=== PATIENT | female | born 2005 | race Caucasian/White ===

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

== ENCOUNTER 2023-10-31 00:52 | Emergency (ER) | payer OTHER, SELFPAY ==
--- NOTE | ~2023-10-31 | CT_ITS ---
EXAMINATION: CT abdomen pelvis w con DATE: 10/31/2023 02:32 INDICATION: Right pelvic pain. TECHNIQUE: Computed tomography (CT) of the abdomen and pelvis was performed with 100 mL Omnipaque 350 intravenous contrast. Automated exposure control and iterative reconstruction technique were employe d. The dose-length product was 193.97 mGy-cm. COMPARISON: None. FINDINGS: The visualized portions of the lung bases demonstrate mild atelectasis. No pleural effusion . The heart size is normal. No pericardial effusion. There is periportal edema in the liver. The gall bladder is normal in size. Gallbladder wall thickening is noted, likely interstitial edema. The splee n, pancreas, adrenal glands, and kidneys are normal. There are no dilated loops of bowel. The appendi x is normal. There is physiologic fluid in the pelvis. There is a small volume of perihepatic ascites . There are no pathologically enlarged lymph nodes. The bones are unremarkable. IMPRESSION: 1. Periportal edema and small volume of perihepatic ascites. Gallbladder wall thickening, likely seco ndary to interstitial edema. Reviewed, dictated and finalized at location A. IMPRESSION: 1. Periportal edema and small volume of perihepatic ascites. Gallbladder wall t hickening, likely secondary to interstitial edema.
[2023-10-31 00:52] VITALS: BP 120/89; PULSE 95; RESP 17; TEMP 36.4; O2SAT 100
--- NOTE | 2023-10-31 01:06 | ED.GENADULT ---
HPI - General Adult General Chief complaint: Abdominal Pain Stated complaint: ABD Pain Time Seen by Provider: 10/31/23 01:00 History of Present Illness HPI narrative: The patient is an otherwise healthy 18-year-old woman who presents with lower abdominal suprapubic discomfort since the afternoon of 10/30/2023, constant in nature, waxing and waning in intensity, radiating down to the right leg up to the knee. It is associated with nausea, and several bouts of emesis, approximately 6. Last menstrual period was 3 weeks ago. She is due on her cycle in 1 weeks time. No previous similar pain. Normal bowel movements. No hematochezia or melena or diarrhea. No vaginal discharge or bleeding. No URI symptoms such as cough rhinorrhea nasal congestion or sore throat. No UTI symptoms such as urgency frequency dysuria or hematuria. No previous medical history. No abdominal operations. She takes no medications. Related Data Allergies Allergy/AdvReac Type Severity Reaction Status Date / Time No Known Allergies Allergy Verified 10/31/23 00:57 Review of Systems Review of Systems: All systems reviewed & are unremarkable except as noted in HPI and below Constitutional: Constitutional: Denies chills, Denies excessive sweating, Denies fatigue, Denies fever(s), Denies headache(s) and Denies weakness Eyes: Eyes: Denies change in vision and Denies photophobia ENT: Denies dysphagia, Denies dizziness, Denies headache(s), Denies lip swelling, Denies nasal congestion, Denies sore throat and Denies tongue swelling Cardiovascular: Cardiovascular: Denies chest pain, Denies syncope, Denies rapid heart rate and Denies dyspnea Respiratory: Respiratory: Denies cough, Denies dyspnea and Denies wheezing Gastrointestinal: Gastrointestinal: Reports abdominal pain ( Suprapubic discomfort), Denies constipation, Denies dysphagia, Denies diarrhea, Reports nausea and Reports vomiting Genitourinary: Genitourinary: Denies hematuria, Denies urinary frequency, Denies dysuria and Denies urinary urgency Musculoskeletal: Musculoskeletal: Denies back pain, Denies myalgias, Denies arthralgias, Denies joint swelling and Denies numbness Integumentary/Breasts: Skin/Breast: Denies pruritus, Denies erythema and Denies rash Neurologic: Denies confusion, Denies dizziness, Denies syncope, Denies headache(s), Denies focal weakness, Denies numbness and Denies weakness Psychiatric: Psychiatric: Denies anxiety and Denies confusion Endocrine: Endocrine: Denies excessive sweating and Denies fatigue Hematologic/Lymphatic: Hematologic/Lymphatic: Denies easy bleeding and Denies easy bruising Allergic/Immunologic: Allergic/Immunologic: Denies lip swelling, Denies tongue swelling and Denies wheezing PMFSH Past Medical History Medical History Laceration Exam Const: General: healthy appearing, no acute distress, alert and well nourished Nutritional Appearance: well nourished Orientation/consciousness: patient oriented x3 Limitations: no limitations HENMT: Head: normal to inspection Ears: external ears normal Face/Nose/Sinus: normal facial exam Face and sinus: normal facial exam Mouth: Yes moist mucous membranes Throat: posterior oropharynx normal Eyes: Conjunctivae: conjunctivae normal Pupils: Equal, round and reactive pupils present EOM: EOMs intact bilaterally Neck: Neck: normal visual inspection and no meningeal signs Chest: Chest palpation & inspection: normal inspection of the chest and no tenderness Resp: Effort & Inspection: normal respiratory effort and not labored Auscultation: clear to auscultation bilaterally, no crackles, no rhonchi and no wheezes Cardio: Rate: regular rate Rhythm: regular rhythm Heart sounds: no murmurs GI: Inspection: non-distended GI Palp: Yes Soft to palpation, Yes Tenderness to palpation present (GI) ( mild suprapubic tenderness to palpation, no rebound), No Guarding due to pal
[2023-10-31] MEDS: SODIUM CHLORIDE 0.9% IV 1,000 ML 999 ML IV CONT (01:15)
[2023-10-31] MEDS: ONDANSETRON INJ 4 MG/2 ML VIAL IV PUSH (01:16)
[2023-10-31 01:20] LABS: Basophils Absolute Auto 0.04 K/mm3 (0.00-0.10); Basophils Percent Auto 0.5 % (0.0-1.0); Eosinophils Absolute Auto 0.22 K/mm3 (0.02-0.50); Eosinophils Percent Auto 2.9 % (1.0-6.0); Hematocrit 35.4 % (35.0-49.0); Hemoglobin 12.2 g/dL (12.0-15.0); Immature Granulocyte Absolute 0.02 K/mm3 (0.00-0.00); Immature Granulocyte Percent A 0.3 % (0.0-0.0); Immature Platelet Fraction Pct 3.3 % (1.0-7.0); Lymphocytes Absolute Auto 2.46 K/mm3 (1.10-4.50); Lymphocytes Percent Auto 32.3 % (18.0-42.0); Mean Corpuscular HGB Conc 34.5 g/dL (32-36); Mean Corpuscular Hemoglobin 29.6 pg (27.0-31.0); Mean Corpuscular Volume 85.9 fL (78.0-102.0); Mean Platelet Volume 11.2 fl (9.2-11.8); Monocytes Absolute Auto 0.33 K/mm3 (0.10-0.90); Monocytes Percent Auto 4.3 % (2.0-11.0); Neutrophils Absolute Auto 4.54 K/mm3 (1.70-7.20); Neutrophils Percent Auto 59.7 % (50.0-70.0); Platelet Count Result 110 K/mm3 (150-420); Red Blood Count 4.12 M/mm3 (4.20-5.40); Red Cell Distribution Width 12.1 % (11.6-14.4); White Blood Count 7.6 K/mm3 (4.8-10.8)
[2023-10-31 01:31] LABS: Alanine Aminotransferase 18 U/L (14-59); Albumin Level 3.9 g/dL (3.4-5.0); Alkaline Phosphatase 36 U/L (46-116); Amylase 49 U/L (25-115); Anion Gap 12 mmol/L (4-12); Aspartate Amino Transferase 19 U/L (15-37); Bilirubin,Total 0.3 mg/dL (0.00-1.00); Blood Urea Nitrogen 8 mg/dL (7-18); Calcium 8.5 mg/dL (8.5-10.1); Carbon Dioxide 24 mmol/L (21-32); Chloride 103 mmol/L (98-108); Estimated CRCL calculation 91 ml/min; Estimated Glomerular Filt Rate > 60; Glucose 140 mg/dL (70-99); Lipase 11 U/L (16-77); Magnesium 1.9 mg/dL (1.8-2.4); Osmolality Calculated 288 mOsm/kg (285-295); Potassium 3.1 mmol/L (3.5-5.1); Sodium 139 mmol/L (136-145); Total Protein 6.9 g/dL (6.4-8.2)
[2023-10-31 01:33] LABS: SPREG INTERNAL CONTROL Positive; Serum Qual hCG Negative
[2023-10-31] MEDS: KETOROLAC 30 MG/ML VIAL (*BKC) IV PUSH (01:34)
[2023-10-31 02:18] LABS: Appearance Urine Cloudy (Clear); Bilirubin Urine 1+ (Negative); Blood Urine 3+ (Negative); Glucose Urine UA Trace (Negative); Ketones Urine Trace (Negative); Leukocyte Esterase Ur Trace LEU/UL (Negative); Nitrate Urine Positive (Negative); Protein Urine 2+ (Negative); Specific Grav Ur >= 1.030 (1.010-1.020); pH Urine 5.5 (5.0-8.0)
[2023-10-31 02:24] LABS: Add Urine Microscopic? YES; Color Urine Dark Red (Yellow); RBC Urine >100 /hpf (0-2)
[2023-10-31 02:25] LABS: Bacteria Urine 2+ /hpf; Squamous Epithelial Cell Urine Few /hpf (Few)
[2023-10-31 02:33] VITALS: BP 120/76; PULSE 78; RESP 16; O2SAT 100
[2023-10-31] MEDS: POTASSIUM CHLORIDE 20 MEQ ER TABLET 40 MEQ PO (03:12)
[2023-10-31 03:16] VITALS: BP 122/78; PULSE 80; RESP 16; O2SAT 100
--- NOTE | 2023-11-02 16:59 | PC.NURSE ---
FINAL URINE CULTURE NO GROWTH
== END 2023-10-31 04:09 | disposition home or self-care (01) ==
PROVIDERS: Emergency Provider Emergency Medicine
DX: N39.0 Urinary tract infection, site not specified (principal); E87.6 Hypokalemia
CPT/HCPCS: 36415; 74177; 80053; 81001; 82150; 83690; 83735; 84703; 85025; 85055; 87086; 96361; 96365; 96375; 99284; A9270; J0696; J1885; J2405; J7030; Q9967

== ENCOUNTER 2024-07-12 19:57 | Emergency (ER) | payer OTHER, SELFPAY ==
[2024-07-12 20:00] VITALS: BP 112/80; PULSE 104; RESP 18; TEMP 36.9; O2SAT 100
--- NOTE | 2024-07-12 20:04 | ED.NAVMDI ---
HPI - Nausea/Vomiting/Diarrhea General Chief complaint: Nausea/Vomiting/Diarrhea Stated complaint: n/v/d Time Seen by Provider: 07/12/24 20:04 Source: patient Mode of arrival: ambulatory Limitations: no limitations History of Present Illness HPI Narrative: 18-year-old female with no significant past medical history presents to the ED with a 1 day history of -- nausea with multiple episodes of vomiting. Vomitus is bilious. She is unable to keep anything down. -- diffuse abdominal pain. -- Multiple episodes of watery stool. No blood or mucus noted. No fever or chills. No upper respiratory tract symptoms The patient ate out in [employer] yesterday. No one else is sick at home. MD elicited complaint: nausea, vomiting, diarrhea and abdominal pain Onset (ago): day(s) ( 1 day) Description of vomiting: watery Description of diarrhea: watery Associated nausea: Yes Associated abdominal pain: Yes Location of pain: diffuse Pain consistency: intermittent Quality: aching Exacerbating factors: none Relieving factors: none Associated symptoms: weakness Related Data Allergies Allergy/AdvReac Type Severity Reaction Status Date / Time No Known Allergies Allergy Verified 07/12/24 20:42 Review of Systems Review of Systems: All systems reviewed & are unremarkable except as noted in HPI and below PMFSH Past Medical History Medical History Laceration Exam Const: General: no acute distress Orientation/consciousness: patient oriented x3 Limitations: no limitations HENMT: Head: normal to inspection Ears: external ears normal Face/Nose/Sinus: Normal external nose present Face and sinus: normal facial exam Mouth: Yes Normal oral and palatal mucosa present Throat: posterior oropharynx normal Eyes: Conjunctivae: conjunctivae normal Cornea: corneas normal Pupils: Equal, round and reactive pupils present EOM: EOMs intact bilaterally Direct Ophthalmoscopy: no photophobia Neck: Neck: normal visual inspection, no lymphadenopathy and no meningeal signs Chest: Chest palpation & inspection: normal inspection of the chest Resp: Effort & Inspection: normal respiratory effort Auscultation: clear to auscultation bilaterally Cardio: Rate: regular rate Rhythm: regular rhythm GI: GI Palp: Yes Soft to palpation Auscultation: normal bowel sounds Other: no tenderness/rigidity / rebound. : General: Yes no CVA tenderness Back/Spine/Pelvis: Back: no CVA tenderness Skin: General skin exam: normal color Rashes: no rashes Wounds: no wounds Neuro: General: patient oriented x3, moves all extremities, no meningeal signs, no focal motor deficits and CN's II-XI intact bilaterally Cranial nerves: Yes Nystagmus not present Speech: normal speech Extrem: General: normal to inspection and no clubbing, cyanosis or edema Psych: Mental Status: mental status grossly normal Affect: normal affect Attitude: cooperative Course Course Emergency Course: Gastroenteritis-- physical examination did not show any evidence of acute abdomen. The patient is noted to have a white cell count of 9. Patient received IV fluids and Compazine. Will discharge home on boyfriend Vital Signs Vital signs: Vital Signs Temperature 36.9 C 07/12/24 20:00 Pulse Rate 104 H 07/12/24 20:00 Respiratory Rate 18 07/12/24 20:00 Blood Pressure 112/80 07/12/24 20:00 Pulse Oximetry 100 07/12/24 20:00 Oxygen Delivery Room Air 07/12/24 20:00 Temperature 36.9 C 07/12/24 20:00 Pulse Rate 104 H 07/12/24 20:00 Respiratory Rate 18 07/12/24 20:00 Blood Pressure 112/80 07/12/24 20:00 Pulse Oximetry 100 07/12/24 20:00 Oxygen Delivery Room Air 07/12/24 20:00 MDM - Nausea/Vomiting/Diarrhea MDM Narrative Medical decision making narrative: gastroenteritis Differential Diagnosis Differential diagnosis: Likely traveler's diarrhea Medical Records Attestation: I reviewed the patient's medical records. Lab Data Attestation: I reviewed the patient's lab results. 07/12/24 20:21 07/12/24 20:20 Labs: Lab Results 07/12/24 07/12/24 07/12/24 Range/Units 20:20 20:21 20:44 WBC 9.0 (4.8-10.8) K/mm3 RBC 5.19 (4.20-5.40) M/mm3 Hgb 14.7 (12.0-15.0) g/dL Hct 42.8 (35.0-49.0) % MCV 82.5 (78.0-102.0) fL MCH 28.3 (27.0-31.0) pg MCHC 34.3 (32-36) g/dL RDW 12.1 (11.6-14.4) % Plt Count 166 (150-420) K/mm3 MPV 10.7 (9.2-11.8) fl Immature Gran % (Auto) 0.2 H (0.0-0.0) % Neut % (Auto) 95.8 H (50.0-70.0) % Lymph % (Auto) 2.3 L (18.0-42.0) % [place] % (Auto) 1.3 L (2.0-11.0) % Eos % (Auto) 0.2 L (1.0-6.0) % Baso % (Auto) 0.2 (0.0-1.0) % Lymph # (Auto) 0.21 L (1.10-4.50) K/mm3 [place] # (Auto) 0.12 (0.10-0.90) K/mm3 Eos # (Auto) 0.02 (0.02-0.50) K/mm3 Baso # (Auto) 0.02 (0.00-0.10) K/mm3 Abs Immat Gran (auto) 0.02 H (0.00-0.00) K/mm3 Absolute Neuts (auto) 8.65 H (1.70-7.20) K/mm3 Absolute Nucleated RBC 0.00 (0.00-0.00) K/mm3 Nucleated RBC % 0.0 (0-0.0) % Sodium 140 (136-145) mmol/L Potassium 3.7 (3.5-5.1) mmol/L Chloride 100 (98-108) mmol/L Carbon Dioxide 25 (21-32) mmol/L Anion Gap 15 H (4-12) mmol/L BUN 15 (7-18) mg/dL Creatinine 0.79 (0.55-1.02) mg/dL Estim Creat Clear Calc 74 ml/min Estimated GFR > 60 (59 - ) Glucose 115 H (70-99) mg/dL Calculated Osmolality 291 (285-295) mOsm/kg Lactic Acid 1.7 (0.4-2.0) mmol/L Calcium 9.1 (8.5-10.1) mg/dL Total Bilirubin 0.7 (0.00-1.00) mg/dL AST 19 (15-37) U/L ALT 36 (14-59) U/L Alkaline Phosphatase 61 (46-116) U/L Total Protein 8.5 H (6.4-8.2) g/dL Albumin 4.8 (3.4-5.0) g/dL Lipase 16 (16-77) U/L Urine Color Yellow (Yellow) Urine Appearance Clear (Clear) Urine pH 6.5 (5.0-8.0) Ur Specific [place] 1.020 (1.010-1.020) Urine Protein 1+ H (Negative) Urine Glucose (UA) Negative (Negative) Urine Ketones 1+ H (Negative) Ur Blood (Man) Negative (Negative) Urine Nitrate Negative (Negative) Urine Bilirubin Negative (Negative) Urine Urobilinogen 1.0 (0.2-1.0) mg/dL Leukocyte Esterase Rfl Negative (Negative) LELE/UL Urine RBC 0-2 (0-2) /hpf Urine WBC 0-3 (0-3) /hpf Ur Squamous Epith Cells Few (Few) /hpf Urine Bacteria Trace (None) /hpf Urine Mucus Few H /lpf Urine Test Negative Influenza A (RT-PCR) Negative (Negative) Influenza B (RT-PCR) Negative (Negative) RSV (RT-PCR) Negative (Negative) SARS-CoV-2 RNA (RT-PCR) Negative (Negative) Discharge Plan Discharge Clinical Impression: Gastroenteritis Patient Disposition: Home, Self-Care Condition: Stable Instructions: Antibiotic Form, Gastroenteritis (ED) Patient Language: Faroese Prescriptions: New ondansetron HCl 4 mg tablet 4 mg PO Q8H PRN (Reason: nausea and vomiting) 4 Days Qty: 10 0RF Follow-up/Referrals: UNKNOWN,DOCTOR [Non-Staff] - Time of Disposition: 21:44
--- NOTE | 2024-07-12 20:13 | PC.NURSE ---
pt ambulated to bathroom for urine specimen
[2024-07-12 20:24] LABS: Add Urine Microscopic? YES; Appearance Urine Clear (Clear); Bilirubin Urine Negative (Negative); Blood Urine Negative (Negative); Color Urine Yellow (Yellow); Glucose Urine UA Negative (Negative); Ketones Urine 1+ (Negative); Leukocyte Esterase Ur Negative LEU/UL (Negative); Nitrate Urine Negative (Negative); Protein Urine 1+ (Negative); pH Urine 6.5 (5.0-8.0)
[2024-07-12 20:25] LABS: Basophils Absolute Auto 0.02 K/mm3 (0.00-0.10); Basophils Percent Auto 0.2 % (0.0-1.0); Eosinophils Absolute Auto 0.02 K/mm3 (0.02-0.50); Eosinophils Percent Auto 0.2 % (1.0-6.0); Hematocrit 42.8 % (35.0-49.0); Hemoglobin 14.7 g/dL (12.0-15.0); Immature Granulocyte Absolute 0.02 K/mm3 (0.00-0.00); Immature Granulocyte Percent A 0.2 % (0.0-0.0); Lymphocytes Absolute Auto 0.21 K/mm3 (1.10-4.50); Lymphocytes Percent Auto 2.3 % (18.0-42.0); Mean Corpuscular HGB Conc 34.3 g/dL (32-36); Mean Corpuscular Hemoglobin 28.3 pg (27.0-31.0); Mean Corpuscular Volume 82.5 fL (78.0-102.0); Mean Platelet Volume 10.7 fl (9.2-11.8); Monocytes Absolute Auto 0.12 K/mm3 (0.10-0.90); Monocytes Percent Auto 1.3 % (2.0-11.0); Neutrophils Absolute Auto 8.65 K/mm3 (1.70-7.20); Neutrophils Percent Auto 95.8 % (50.0-70.0); Platelet Count Result 166 K/mm3 (150-420); Red Blood Count 5.19 M/mm3 (4.20-5.40); Red Cell Distribution Width 12.1 % (11.6-14.4)
[2024-07-12] MEDS: LACTATED RINGERS 500 ML 999 ML IV CONT (20:25)
[2024-07-12] MEDS: PROCHLORPERAZINE EDISYLATE 10 MG/2 ML VIAL 5 MG IV PUSH (20:26)
[2024-07-12 20:29] LABS: Bacteria Urine Trace /hpf; RBC Urine 0-2 /hpf (0-2); Squamous Epithelial Cell Urine Few /hpf (Few); WBC Urine 0-3 /hpf (0-3)
[2024-07-12 20:30] LABS: Mucus Urine Few /lpf; Pregnancy On Board Control Positive; Urine Pregnancy Test Negative
[2024-07-12 20:37] LABS: Alanine Aminotransferase 36 U/L (14-59); Albumin Level 4.8 g/dL (3.4-5.0); Alkaline Phosphatase 61 U/L (46-116); Anion Gap 15 mmol/L (4-12); Aspartate Amino Transferase 19 U/L (15-37); Bilirubin,Total 0.7 mg/dL (0.00-1.00); Blood Urea Nitrogen 15 mg/dL (7-18); Calcium 9.1 mg/dL (8.5-10.1); Carbon Dioxide 25 mmol/L (21-32); Chloride 100 mmol/L (98-108); Estimated CRCL calculation 74 ml/min; Estimated Glomerular Filt Rate > 60; Glucose 115 mg/dL (70-99); Lipase 16 U/L (16-77); Osmolality Calculated 291 mOsm/kg (285-295); Potassium 3.7 mmol/L (3.5-5.1); Sodium 140 mmol/L (136-145); Total Protein 8.5 g/dL (6.4-8.2)
[2024-07-12 20:43] LABS: Lactic Acid Reflex 1.7 mmol/L (0.4-2.0)
[2024-07-12 21:33] LABS: Influenza A QL RT-PCR Negative (Negative); Influenza B QL RT-PCR Negative (Negative); RSV RNA, RT-PCR Negative (Negative); SARS-CoV-2 RNA PCR Negative (Negative)
== END 2024-07-12 21:50 | disposition home or self-care (01) ==
PROVIDERS: Emergency Provider Internal Medicine Critical Care Medicine; PCP Registered Nurse
DX: K52.9 Noninfective gastroenteritis and colitis, unspecified (principal); Z20.822 Contact with and (suspected) exposure to COVID-19
CPT/HCPCS: 36415; 80053; 81001; 81025; 83605; 83690; 85025; 87637; 96374; 99284; J0780; J7120